=== PATIENT | male | born 1970 | race Caucasian/White ===

== ENCOUNTER 2021-05-03 13:51 | Emergency (ER) | payer MEDICAID ==
[~2021-05-03] VITALS: Ht 177.8 cm; Wt 114.0 kg
[2021-05-03] MEDS ORDERED: LEVETIRACETAM 1000MG PREMIX 100 ML IV ONE (15:30)
[2021-05-03 16:14] LABS: BASOPHILS % 0.2 % (0.0-2.0); EOSINOPHILS % 0.5 % (0.0-5.0); HEMOGLOBIN. 15.2 g/dL (14.0-18.0); MEAN CORPUSCULAR HEMOGLOBIN 29.5 pg (28.0-32.0); MEAN CORPUSCULAR VOLUME 88.8 fL (80.0-94.0); MEAN PLATELET VOLUME 8.7 fl (7.4-10.4); MONOCYTES % 5.5 % (2.0-8.0); NEUTROPHILS % 84.8 % (40.0-76.0); PLATELET 271 x1000/uL (130-400); RED BLOOD CELL COUNT 5.18 mill/uL (4.7-6.1); RED CELL DISTRIBUTION WIDTH 13.4 % (11.6-14.6)
[2021-05-03 16:21] LABS: CHLORIDE 107 mEq/L (98-107)
[2021-05-03 16:25] LABS: ETHANOL BLOOD < 10 mg/dL
[2021-05-03] MEDS ORDERED: LORAZEPAM 2MG/ML CPJ IV ONE (17:15)
[2021-05-03 21:00] VITALS: BP 125/88
[2021-05-03] MEDS ORDERED: KEPP500 MT (21:07)
== END 2021-05-03 21:00 | disposition home or self-care (01) ==
LOC: ER 14:04
DX: R56.9 Unspecified convulsions (principal); R53.1 Weakness; R42 Dizziness and giddiness
CPT/HCPCS: 36415; 80053; 80320; 85025; 93005; 96365; 96375; 99284; J1953; J2060; Z7610; G0480